=== PATIENT | female | born 1950 | race Caucasian/White ===

== ENCOUNTER 2024-01-06 23:46 | Inpatient (IN) | payer OTHER, MEDICAID ==
[2024-01-07 02:30] LABS: Bacteria/HPF 1+ HPF (None Seen); Bilirubin Negative (Negative); Blood, Urine Negative (Negative); CAUTI Indications for Culture Alt mental st,lethar; Clarity Turbid (Clear); Glucose, Urine (Dipstick) Greater than 1000 mg/dL (Negative); Ketone, Urine Trace mg/dL (Negative); Leukocyte 500 Leu/uL (Negative); Nitrite 1+ (Negative); Protein, Urine (Dipstick) Negative (Neg-Trace); RBC/HPF 0-3 HPF (0-3); Specific Gravity, Urine 1.015 (1.002-1.036); Squamous Epithelial None Seen HPF (0-3); Urobilinogen Normal mg/dL (Less than 2); WBC/HPF Greater than 50 HPF (0-3); Yeast-Budding 2+ HPF (None Seen)
[2024-01-07 02:31] LABS: Urine Culture Reflex Yes Yes
[2024-01-07] MEDS ORDERED: Glucagon 1 MG/ML KIT IM PRN (03:23)
[2024-01-07] MEDS ORDERED: HumaLOG 300 UNITS/3 ML VIAL SC PRN (03:23)
[2024-01-07] MEDS ORDERED: Acetaminophen 325 MG TAB PO PRN (03:23)
[2024-01-07] MEDS ORDERED: Acetaminophen 650 MG Suppository PR PRN (03:23)
[2024-01-07] MEDS ORDERED: Dextrose 5% in Water 1,000 ML IV PRN (03:23)
[2024-01-07] MEDS ORDERED: Dextrose 50% Abboject 50 ML SYRINGE SLOW IVP PRN (03:23)
[2024-01-07 05:02] VITALS: BMI 22.8
[2024-01-07 07:30] LABS: #Basophils 0.11 10x3/uL (0.0-0.2); %Basophils 1.6 % (0.0-1.0); %Eosinophils 5.6 % (0.0-10.0); %Lymphocytes 19.9 % (21.0-51.0); %Neutrophils 61.6 % (42.0-75.0); Anion Gap 18 mmol/L (10-20); BUN (Urea Nitrogen) 8 mg/dL (9.8-20.1); Calc. Creatinine Clearance 54 mL/min (70-130); Calcium 9.7 mg/dL (7.8-10.44); Carbon Dioxide 27 mmol/L (23-31); Chloride 101 mmol/L (98-107); Estimated GFR 75; Glucose 133 mg/dL (83-110); Hematocrit 31.5 % (36.0-47.0); Hemoglobin 8.9 g/dL (12.0-16.0); Iron 22 ug/dL (50-170); Iron Binding Capacity, Total 365 mcg/dL (265-497); Iron Binding Capacity, Total 368 mcg/dL (265-497); Mean Corpuscular HGB CONC 28.3 g/dL (32.0-36.0); Mean Corpuscular Hemoglobin 23.3 pg (27.0-31.0); Mean Corpuscular Volume 82.5 fL (78.0-98.0); Mean Platelet Volume 10.3 fL (7.4-10.4); Platelet Count 474 10x3/uL (130-400); Potassium 3.8 mmol/L (3.5-5.1); RBC Distribution Width 17.6 % (11.5-14.5); Red Blood Cell (RBC) Count 3.82 mill/uL (4.20-5.40); Sodium 142 mmol/L (136-145)
[2024-01-07 08:00] LABS: Ferritin 20.82 ng/mL (10-291); Thyroid Stimulating Hormone 1.6848 uIU/mL (0.35-4.94)
[2024-01-07] MEDS: Famotidine 20 MG TAB PO SCH (08:47)
[2024-01-07] MEDS: Sodium Chloride 0.9% 1,000 ML IV SCH (08:47)
[2024-01-07] MEDS: cefTRIAXone\\ROCEPHIN 1 GM in Sodium Chloride 0.9% 100 ML IVPB SCH (08:47)
[2024-01-07 13:11] VITALS: BP 122/67
[2024-01-07] MEDS: Ipratropium/Albuterol 3 ML NEB NEB PRN (20:28)
[2024-01-07] MEDS: guaiFENesin ER 600 MG TAB PO SCH (21:22)
[2024-01-07] MEDS: HumaLOG 300 UNITS/3 ML VIAL SC PRN (21:26)
[2024-01-08 04:15] LABS: %Basophils 1.5 % (0.0-1.0); %Eosinophils 5.8 % (0.0-10.0); %Lymphocytes 25.8 % (21.0-51.0); %Monocytes 10.3 % (0.0-10.0); %Neutrophils 56.3 % (42.0-75.0); Hematocrit 26.4 % (36.0-47.0); Hemoglobin 7.8 g/dL (12.0-16.0); Mean Corpuscular HGB CONC 29.5 g/dL (32.0-36.0); Mean Corpuscular Hemoglobin 23.8 pg (27.0-31.0); Mean Corpuscular Volume 80.5 fL (78.0-98.0); Mean Platelet Volume 10.1 fL (7.4-10.4); Platelet Count 482 10x3/uL (130-400); RBC Distribution Width 17.2 % (11.5-14.5); Red Blood Cell (RBC) Count 3.28 mill/uL (4.20-5.40)
[2024-01-08 04:56] LABS: Anion Gap 15 mmol/L (10-20); BUN (Urea Nitrogen) 7 mg/dL (9.8-20.1); Calc. Creatinine Clearance 57 mL/min (70-130); Calcium 8.8 mg/dL (7.8-10.44); Carbon Dioxide 25 mmol/L (23-31); Chloride 105 mmol/L (98-107); Estimated GFR 81; Glucose 153 mg/dL (83-110); Potassium 3.6 mmol/L (3.5-5.1); Sodium 141 mmol/L (136-145)
[2024-01-08 12:11] VITALS: TEMP 98
[2024-01-08 13:17] VITALS: BMI 23.1
== END 2024-01-08 15:32 | DRG 689 ==
LOC: ERS 23:46 → ERHOLD 01-07 02:56 → IMCU/EMU 01-07 04:33 → OBSVTOIN 01-07 10:31
PROVIDERS: ADMIT Internal Medicine; ATTEND Internal Medicine
DX: N39.0 Urinary tract infection, site not specified (principal); G93.41 Metabolic encephalopathy; I13.0 Hypertensive heart and chronic kidney disease with heart failure and stage 1 through stage 4 chronic kidney disease, or unspecified chronic kidney disease; F03.90 Unspecified dementia, unspecified severity, without behavioral disturbance, psychotic disturbance, mood disturbance, and anxiety; J44.9 Chronic obstructive pulmonary disease, unspecified; I50.9 Heart failure, unspecified; Z66 Do not resuscitate; N18.9 Chronic kidney disease, unspecified; E03.9 Hypothyroidism, unspecified; G89.29 Other chronic pain; M19.90 Unspecified osteoarthritis, unspecified site; E11.22 Type 2 diabetes mellitus with diabetic chronic kidney disease; E11.65 Type 2 diabetes mellitus with hyperglycemia; B95.8 Unspecified staphylococcus as the cause of diseases classified elsewhere; Z79.51 Long term (current) use of inhaled steroids; Z91.199 Patient's noncompliance with other medical treatment and regimen due to unspecified reason; Z79.82 Long term (current) use of aspirin; Z79.4 Long term (current) use of insulin; Z79.899 Other long term (current) drug therapy; Z79.84 Long term (current) use of oral hypoglycemic drugs
CPT/HCPCS: 36415; 36416; 71045; 80048; 81001; 82607; 82728; 83540; 83550; 83605; 83880; 84443; 85025; 87086; 93005; 94640; 97139; J0696; J1815; J3490; J7050; J7620